=== PATIENT | female | born 1945 | race Caucasian/White ===

== ENCOUNTER 2021-04-14 09:51 | Emergency (ER) | payer OTHER ==
[2021-04-14 10:39] LABS: HEMOGLOBIN 12.8 gm/dl (12.3-15.3); RED BLOOD COUNT 4.13 M/UL (4.00-5.10); WHITE BLOOD COUNT 7.5 K/UL (4.5-11.0)
[2021-04-14 11:05] LABS: BUN/CREATININE RATIO 24 (0-10)
[2021-04-14] MEDS ORDERED: CIPRO500 MG PO (16:08)
== END 2021-04-14 16:15 | disposition home or self-care (01) ==
LOC: ER1 09:51
PROVIDERS: Nurse Practitioner
DX: N30.90 Cystitis, unspecified without hematuria (principal); Z85.3 Personal history of malignant neoplasm of breast; Z20.822 Contact with and (suspected) exposure to COVID-19
CPT/HCPCS: 0240U; 71045; 76705; 80053; 81001; 82150; 82550; 82553; 83605; 83690; 83874; 84484; 85025; 85652; 86140; 87040; 87086; 93005; 96374; 99284; J0696

== ENCOUNTER → 2021-06-13 | Outpatient (CLI) | payer OTHER ==
[~2021-06-13] MED LIST: CIPRO500 MG PO
== END ==
LOC: MRI 05-31 14:00
DX: K81.9 Cholecystitis, unspecified (principal); K83.8 Other specified diseases of biliary tract; K82.8 Other specified diseases of gallbladder
CPT/HCPCS: 74181

== ENCOUNTER → 2021-08-10 | Outpatient (CLI) | payer OTHER | LOC: ECHO 11:42 → NM 13:00 | DX: I20.9 Angina pectoris, unspecified (principal); I27.20 Pulmonary hypertension, unspecified | CPT/HCPCS: ECHO; 93306 ==

== ENCOUNTER 2021-12-12 21:25 | Emergency (ER) | payer OTHER ==
[2021-12-12 22:07] LABS: HEMOGLOBIN 13.1 gm/dl (12.3-15.3); RED BLOOD COUNT 4.17 M/UL (4.00-5.10); WHITE BLOOD COUNT 11.6 K/UL (4.5-11.0)
[2021-12-12 22:29] LABS: BUN/CREATININE RATIO 31 (0-10)
[2021-12-13] MEDS ORDERED: HYDROCODON-ACE1 EAC4 PO (02:30)
[2021-12-13] MEDS ORDERED: ZOFRAN 4 MG TAB4 MG PO (02:30)
== END 2021-12-13 02:45 | disposition home or self-care (01) ==
LOC: ER1 21:25
PROVIDERS: Physician Assistant
DX: R10.84 Generalized abdominal pain (principal); F17.200 Nicotine dependence, unspecified, uncomplicated; R10.811 Right upper quadrant abdominal tenderness
CPT/HCPCS: 71045; 80053; 81001; 82550; 82553; 83690; 84484; 85025; 93005; 99285; Q9967